=== PATIENT | female | born 1980 | race American Indian/Alaskan Native ===

== ENCOUNTER 2016-11-08 02:13 | Emergency (ER) | payer SELFPAY ==
[2016-11-08 02:27] VITALS: BP 140/91
== END 2016-11-08 03:20 | disposition left against medical advice (07) ==
LOC: ED 02:13
DX: Z53.21 Procedure and treatment not carried out due to patient leaving prior to being seen by health care provider (principal)

== ENCOUNTER 2018-09-16 22:15 | Emergency (ER) | payer SELFPAY ==
[2018-09-16 22:59] VITALS: BP 144/102
== END 2018-09-16 23:30 | disposition left against medical advice (07) ==
LOC: ED 22:15
DX: R07.89 Other chest pain (principal); Z53.21 Procedure and treatment not carried out due to patient leaving prior to being seen by health care provider
CPT/HCPCS: 93005; 93010